=== PATIENT | male | born 1955 | race Caucasian/White ===

== ENCOUNTER 2017-05-13 09:43 | Day surgery (SDC) | payer BC ==
[~2017-05-13 09:43] MED LIST: ACETAMINOPHEN 325 MG TABLET PO PRN; DEXAMETHASONE SOD PHOSPHATE 10 MG/ML VIAL IV PRN; MORPHINE SULFATE 2 MG/ML DISP.SYRIN IV PRN; MORPHINE SULFATE 4 MG/ML SYRG IV PRN; ONDANSETRON HCL/PF 2 MG/ML VIAL IV PRN; RINGER'S SOLUTION,LACTATED 1,000 ML IV PRN; ceFAZolin SODIUM 1 GM in DEXTROSE 5 % IN WATER 100 ML IV PRN; oxyCODONE HCL/ACETAMINOPHEN 1 TAB TABLET PO PRN
[2017-05-13] MEDS: OXYMETAZOLINE HCL 150 SPRAY BTL NS PRN ×2 (10:30→11:34)
[2017-05-13] MEDS ORDERED: RINGER'S SOLUTION,LACTATED 1,000 ML IV ONE (11:32)
[2017-05-13] MEDS ORDERED: LIDOCAINE HCL/EPINEPHRINE 30 ML VIAL IJ ONE (11:50)
[2017-05-13] MEDS ORDERED: COCAINE HCL 4 APPL BTL TP ONE (11:50)
[2017-05-13] MEDS ORDERED: MUPIROCIN 22 APPL TUBE TP ONE (12:04)
[2017-05-13 13:56] VITALS: BP 136/76
== END 2017-05-13 09:44 | disposition home or self-care (01) ==
LOC: AMB 09:43
PROVIDERS: ATTEND Allergy & Immunology
PROC: 09BL0ZZ Excision of Nasal Turbinate, Open Approach (ICD-10-PCS; 2017-05-13)
PROC: 09SM0ZZ Reposition Nasal Septum, Open Approach (ICD-10-PCS; principal; 2017-05-13 11:55)
DX: J34.2 Deviated nasal septum (principal); J34.3 Hypertrophy of nasal turbinates; R04.0 Epistaxis; Z87.891 Personal history of nicotine dependence; Z68.42 Body mass index [BMI] 45.0-49.9, adult